=== PATIENT | male | born 1985 | race African-American/Black ===

== ENCOUNTER 2018-10-05 21:26 | Emergency (ER) | payer SELFPAY ==
[~2018-10-05] VITALS: Ht 175.3 cm; Wt 95.3 kg
[2018-10-06 02:57] VITALS: BP 131/92
== END 2018-10-06 06:07 | disposition home or self-care (01) ==
LOC: ER 21:30
DX: S62.201A Unspecified fracture of first metacarpal bone, right hand, initial encounter for closed fracture (principal); F17.210 Nicotine dependence, cigarettes, uncomplicated; W22.8XXA Striking against or struck by other objects, initial encounter; Y93.89 Activity, other specified; Y99.8 Other external cause status; Y92.89 Other specified places as the place of occurrence of the external cause
CPT/HCPCS: 73130